=== PATIENT | female | born 1995 | race American Indian/Alaskan Native ===

== ENCOUNTER 2022-02-27 14:55 | Emergency (ER) | payer MEDICAID ==
--- NOTE | 2022-02-27 16:25 | Emergency Department Report ---
ED Fall HPI - General Chief Complaint: Fall Stated Complaint: FALL/HEAD INJURY/HAND/BLURR VISION Time Seen by Provider: 02/27/22 15:52 Source: patient Mode of arrival: Ambulatory - History of Present Illness Initial Comments: 26-year-old -Citizen Of [place] female who reports he tripped and fell onto her left arm and hit her head. Patient denies any loss of consciousness denies any vomiting. Complains of headache. Also complaining of pain in left wrist. 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, by family Place Fall Occurred: street Loss of Consciousness: none Prolonged Down Time?: no Location - Extremities: Left: Forearm Context: tripped/slipped Associated Symptoms: headache - Related Data Previous Rx's Medication Instructions Recorded Last Taken Type HYDROcodone/APAP 5-325 [[place] 1 each PO Q6HR PRN #10 tablet 02/27/22 Unknown Rx 5/325] Allergies Allergy/AdvReac Type Severity Reaction Status Date / Time iodine AdvReac Unknown Itching Verified 02/27/22 15:42 ED Review of Systems ROS: Stated complaint: FALL/HEAD INJURY/HAND/BLURR VISION Other details as noted in HPI Constitutional: no symptoms reported Eyes: as per HPI ENT: as per HPI Respiratory: no symptoms reported Cardiovascular: denies: chest pain, palpitations, dyspnea on exertion Endocrine: no symptoms reported Gastrointestinal: denies: abdominal pain, nausea, vomiting Musculoskeletal: as per HPI Skin: as per HPI Neurological: as per HPI, headache Psychiatric: as per HPI Hematological/Lymphatic: as per HPI ED Past Medical Hx - Past Medical History Hx Hypertension: Yes - Surgical History Hx Cholecystectomy: Yes Additional Surgical History: Hernia repair, tubal ligation, D&C - Social History Smoking Status: Current Every Day Smoker Substance Use Type: None - Medications Home Medications: Home Medications Medication Instructions Recorded Confirmed Last Taken Type HYDROcodone/APAP 5-325 [[place] 1 each PO Q6HR PRN #10 tablet 02/27/22 Unknown Rx 5/325] ED Physical Exam - General Limitations: No Limitations, Physical Limitation General appearance: alert, in no apparent distress - Head Head exam: Present: normocephalic, other (Minor forehead ecchymosis) - Eye Eye exam: Present: normal appearance, PERRL, EOMI Pupils: Present: normal accommodation - ENT ENT exam: Present: normal exam, normal orophraynx - Neck Neck exam: Present: normal inspection - Respiratory Respiratory exam: Present: normal lung sounds bilaterally - Cardiovascular Cardiovascular Exam: Present: regular rate, normal rhythm, normal heart sounds - GI/Abdominal GI/Abdominal exam: Present: soft. Absent: distended, tenderness, guarding - Extremities Exam Extremities exam: Present: tenderness, joint swelling, other (Left wrist with minor tenderness decreased range of motion due to pain.) - Back Exam Back exam: Present: normal inspection, full ROM - Neurological Exam Neurological exam: Present: alert, oriented X3, CN II-XII intact, normal gait. Absent: motor sensory deficit - Psychiatric Psychiatric exam: Present: normal affect, normal mood - Skin Skin exam: Present: warm, dry ED Course Vital Signs 02/27/22 02/27/22 02/27/22 15:18 15:37 15:45 Temperature 98.1 F Pulse Rate 118 H 102 H 106 H Respiratory 22 22 Rate Blood Pressure 140/86 Blood Pressure 140/118 [Right] O2 Sat by Pulse 99 98 98 Oximetry 02/27/22 02/27/22 02/27/22 15:46 15:48 15:50 Temperature Pulse Rate 110 H 106 H Respiratory 18 20 Rate Blood Pressure 145/97 Blood Pressure 140/86 [Right] O2 Sat by Pulse 98 98 Oximetry 02/27/22 02/27/22 02/27/22 16:01 16:15 16:31 Temperature Pulse Rate 107 H 114 H 103 H Respiratory 18 31 H 22 Rate Blood Pressure 138/90 141/81 140/95 Blood Pressure [Right] O2 Sat by Pulse 97 99 98 Oximetry 02/27/22 02/27/22 02/27/22 16:46 17:08 17:15 Temperature Pulse Rate 106 H 100 H 90 Respiratory 20 20 14 Rate Blood Pressure 140/95 140/95 128/94 Blood Pressure [Right] O2 Sat by Pulse 97 98 98 Oximetry 02/27/22 02/27/22 17:31 17:45 Temperature Pulse Rate 89 92 H Respiratory 12 19 Rate Blood Pressure 147/97 145/102 Blood Pressure [Right] O2 Sat by Pulse 99 99 Oximetry Critical care attestation.: If time is entered above; I have spent that time in minutes in the direct care of this critically ill patient, excluding procedure time. ED Disposition Clinical Impression: Head injury, acute Qualifiers: Encounter type: initial encounter Qualified Code(s): S09.90XA - Unspecified injury of head, initial encounter Left wrist sprain Qualifiers: Encounter type: initial encounter Qualified Code(s): S63.502A - Unspecified sprain of left wrist, initial encounter Disposition: 01 HOME / SELF CARE / HOMELESS Is pt being admited?: No Does the pt Need Aspirin: No Condition: Good Instructions: Head Injury, Adult, Concussion, Adult, Wrist Sprain, Adult Prescriptions: HYDROcodone/APAP 5-325 [[place] 5/325] 1 each PO Q6HR PRN #10 tablet PRN Reason: Pain
--- NOTE | 2022-02-27 16:37 | XRay Report ---
LEFT WRIST 2 VIEW(S) INDICATION / CLINICAL INFORMATION: fall COMPARISON: None available. FINDINGS: BONES / JOINT(S): No acute fracture or subluxation. No significant arthritis. SOFT TISSUES: No significant abnormality. ADDITIONAL FINDINGS: None. IMPRESSION: 1. No acute findings. Signer Name: Kieran Christianson MD Signed: 02/27/2022 4:33 PM Workstation Name: [id number]
[2022-02-27] MEDS ORDERED: ACETAMINOPHEN W/CODEINE 300-30 MG TAB PO ONE (17:29)
--- NOTE | 2022-02-27 17:38 | Cat Scan Report ---
CT head/brain wo con INDICATION: trauma. TECHNIQUE: Routine CT head without contrast. All CT scans at this location are performed using CT dose reduction for ALARA by means of automated exposure control. COMPARISON: None. FINDINGS: BRAIN / INTRACRANIAL CONTENTS: No acute hemorrhage, brain edema, mass effect, or hydrocephalus. Yvonne l lundberg-white differentiation. No chronic infarct or focal atrophy. Normal brain volume and ventricula r/sulcal size for age. CALVARIUM/SKULL BASE/CRANIOCERVICAL JUNCTION: No evidence of fracture. ORBITS: No significant abnormality of visualized orbits. SINUSES / MASTOIDS: No significant abnormality of visualized sinuses and mastoid air cells. ADDITIONAL FINDINGS: None. IMPRESSION: 1. No acute post-traumatic intracranial abnormality. Signer Name: Raulito Gil MD Signed: 02/27/2022 5:34 PM Workstation Name: [id number]
[2022-02-27 18:02] VITALS: BP 145/102
== END 2022-02-27 18:13 | disposition home or self-care (01) ==
LOC: ED 14:55
DX: S63.502A Unspecified sprain of left wrist, initial encounter (principal); S09.90XA Unspecified injury of head, initial encounter; I10 Essential (primary) hypertension; F17.200 Nicotine dependence, unspecified, uncomplicated; Z90.49 Acquired absence of other specified parts of digestive tract; Z91.09 Other allergy status, other than to drugs and biological substances; W19.XXXA Unspecified fall, initial encounter; Y93.89 Activity, other specified; Y92.89 Other specified places as the place of occurrence of the external cause; Y99.8 Other external cause status
CPT/HCPCS: 70450; 99284